=== PATIENT | female | born 1965 | race Caucasian/White ===

== ENCOUNTER 2017-02-16 17:12 | Emergency (ER) | payer OTHER ==
[~2017-02-16] VITALS: Ht 177.8 cm; Wt 88.5 kg
[2017-02-16] MEDS ORDERED: AMLO10TA2 PO (17:40)
[2017-02-16] MEDS ORDERED: MULTCAP11 PO (17:40)
[2017-02-16] MEDS ORDERED: LOSA50TA21 PO (17:40)
[2017-02-16] MEDS ORDERED: LORazepam 2 MG/ML VIAL (J2060) IM STA ×2 (18:40→19:27)
[2017-02-16 19:01] LABS: CONTROL LINE HCG INT CTR LINE PRESENT; MEAN CORPUSCULAR HEMOGLOBIN 26.5 pg (27.0-33.0); MEAN CORPUSCULAR HGB CONC 31.2 g/dl (32.0-36.5); MEAN CORPUSCULAR VOLUME 84.9 fl (80.0-96.0); RED CELL DISTRIBUTION WIDTH 14.9 % (11.5-14.5); WHITE BLOOD COUNT 10.7 K/mm3 (4.0-10.0)
[2017-02-16 19:18] LABS: ALBUMIN/GLOBULIN RATIO 1.14 (1.00-1.93); ALKALINE PHOSPHATASE 99 U/L (45-117); ALT/SGPT 32 U/L (12-78); ANION GAP 10 MEQ/L (8-16); AST/SGOT 24 U/L (15-37); BILIRUBIN,DIRECT < 0.1 MG/DL (0.0-0.2); BILIRUBIN,TOTAL 0.2 MG/DL (0.2-1.0); BLOOD UREA NITROGEN 7 MG/DL (7-18); CALCIUM LEVEL 8.6 MG/DL (8.5-10.1); CARBON DIOXIDE LEVEL 25 MEQ/L (21-32); CHLORIDE LEVEL 107 MEQ/L (98-107); CREATININE FOR GFR 0.71 MG/DL (0.55-1.02); GLOMERULAR FILTRATION RATE > 60.0 (>51); GLUCOSE, FASTING 90 MG/DL (70-105); POTASSIUM SERUM 4.3 MEQ/L (3.5-5.1); SODIUM LEVEL 142 MEQ/L (136-145); TOTAL PROTEIN 7.5 GM/DL (6.4-8.2)
[2017-02-16 19:27] LABS: METHADONE URINE NEGATIVE (NEGATIVE)
[2017-02-16 21:14] VITALS: BP 156/90
== END 2017-02-16 21:32 | disposition home or self-care (01) ==
LOC: M ED 18:58
DX: F10.120 Alcohol abuse with intoxication, uncomplicated (principal); I10 Essential (primary) hypertension; F33.9 Major depressive disorder, recurrent, unspecified; Z79.899 Other long term (current) drug therapy; Z88.8 Allergy status to other drugs, medicaments and biological substances
CPT/HCPCS: 36415; 80048; 80076; 80306; 84443; 84703; 85027; 96372; 99284; G0480; J2060

== ENCOUNTER → 2017-06-25 | Outpatient (CLI) | payer OTHER ==
[~2017-06-25] MED LIST: AMLO10TA2 PO; LOSA50TA5 PO; MULTCAP11 PO
--- NOTE | 2017-06-25 13:00 | REP ---
Chest x-ray: Two views. History: Cough. . Comparison study: May 19, 2017 . Findings: The lungs are well inflated and free of infiltrate. The pleural angles are sharp. The heart size is normal. Pulmonary vasculature is not increased. No significant bony abnormality is seen. Impression: Negative chest x-ray. Signed by Benny Fowler MD 06/25/2017 12:51 P
== END ==
LOC: M LRY 12:10
PROVIDERS: ATTEND Nurse Practitioner Family
DX: R05 Cough (principal)
CPT/HCPCS: 71020; 94640; G0463

== ENCOUNTER → 2017-08-06 | Outpatient (CLI) | payer OTHER ==
--- NOTE | 2017-08-06 11:42 | REP ---
RIGHT ELBOW, FOUR VIEWS: Four views of the right elbow performed. There is no acute fracture or dislocation. No intrinsic osseous pathology is seen. There is no evidence of a joint effusion. There is mild spurring of the coronoid process of the proximal ulna. IMPRESSION: Mild spurring of the coronoid process. Otherwise unremarkable exam. Signed by Gamal Malcolm MD 08/06/2017 02:37 P
== END ==
LOC: M LRY 10:17
PROVIDERS: ATTEND Family Medicine
DX: M25.721 Osteophyte, right elbow (principal); M77.01 Medial epicondylitis, right elbow
CPT/HCPCS: 73080; 80061; 83036; 84439; 84443; G0463

== ENCOUNTER → 2017-11-26 | Outpatient (REF) | payer OTHER ==
[2017-11-26 18:01] LABS: BASO % 0.7 % (0.0-1.0); EOS # 0.3 10^3/uL (0.0-0.50); EOS % 5.1 % (0.0-3.0); HEMATOCRIT 40.2 % (36.0-47.0); HEMOGLOBIN 13.7 g/dl (12.0-16.0); MEAN CORPUSCULAR HEMOGLOBIN 30.9 pg (27.0-33.0); MEAN CORPUSCULAR HGB CONC 34.1 g/dl (32.0-36.5); MEAN CORPUSCULAR VOLUME 90.7 fl (80.0-96.0); MONO # 0.7 10^3/uL (0.0-0.8); MONO % 12.6 % (0.0-5.0); NEUTROPHILS # 2.5 10^3/uL (1.8-7.7); NEUTROPHILS % 45.6 % (36.0-66.0); PLATELET COUNT, AUTOMATED 393 10^3/uL (150-450); RED BLOOD COUNT 4.43 10^6/uL (4.00-5.40); RED CELL DISTRIBUTION WIDTH 13.2 % (11.5-14.5); WHITE BLOOD COUNT 5.5 10^3/uL (4.0-10.0)
[2017-11-26 18:05] LABS: CONTROL LINE HCG INT CTR LINE PRESENT; HCG, SERUM QUALITATIVE NEGATIVE (NEGATIVE)
[2017-11-26 19:03] LABS: FREE T4 0.98 NG/DL (0.76-1.46)
== END ==
LOC: M SFHCLERA 11:17
DX: N93.9 Abnormal uterine and vaginal bleeding, unspecified (principal)
CPT/HCPCS: 84443

== ENCOUNTER 2017-12-24 18:16 | Emergency (ER) | payer OTHER ==
[2017-12-24] MEDS ORDERED: NS 1,000 ML IV ×2 (18:45→19:45)
[2017-12-24] MEDS ORDERED: LORazepam 2 MG/ML VIAL (J2060) IV (19:40)
[2017-12-24] MEDS ORDERED: OXAZEPAM 10 MG CAP PO (19:45)
== END 2017-12-24 20:23 | disposition left against medical advice (07) ==
LOC: M ED 18:16
DX: F10.129 Alcohol abuse with intoxication, unspecified (principal); I10 Essential (primary) hypertension; F17.200 Nicotine dependence, unspecified, uncomplicated; Z88.8 Allergy status to other drugs, medicaments and biological substances; Z79.899 Other long term (current) drug therapy
CPT/HCPCS: 96374

== ENCOUNTER → 2018-01-06 | Outpatient (REF) | payer OTHER ==
[2018-01-09 14:19] LABS: HPV HYBRID CAPTURE II Negative (Negative)
== END ==
LOC: M LAB REF 13:25
DX: Z12.4 Encounter for screening for malignant neoplasm of cervix (principal); Z11.59 Encounter for screening for other viral diseases; L85.9 Epidermal thickening, unspecified
CPT/HCPCS: G0123

== ENCOUNTER 2018-07-11 23:50 | Emergency (ER) | payer OTHER ==
[2018-07-12] MEDS: HALOPERIDOL 5 MG/ML VIAL (J1630) IM (00:15)
[2018-07-12] MEDS: LORazepam 2 MG/ML VIAL (J2060) IM (00:15)
[2018-07-12] MEDS: diphenhydrAMINE INJ 50MG/ML VIAL (J1200) IM (00:15)
[2018-07-12 00:52] LABS: HEMATOCRIT 39.3 % (36.0-47.0); HEMOGLOBIN 13.6 g/dl (12.0-15.5); MEAN CORPUSCULAR HEMOGLOBIN 31.6 pg (27.0-33.0); MEAN CORPUSCULAR HGB CONC 34.6 g/dl (32.0-36.5); MEAN CORPUSCULAR VOLUME 91.2 fl (80.0-96.0); PLATELET COUNT, AUTOMATED 339 10^3/uL (150-450); RED BLOOD COUNT 4.31 10^6/uL (4.00-5.40); RED CELL DISTRIBUTION WIDTH 12.5 % (11.5-14.5); WHITE BLOOD COUNT 9.6 10^3/uL (4.0-10.0)
[2018-07-12 01:20] LABS: AMPHETAMINES LEVEL URINE NEGATIVE (NEGATIVE); BARBITURATES URINE NEGATIVE (NEGATIVE); BENZODIAZEPINES URINE NEGATIVE (NEGATIVE); CANNABINOIDS URINE NEGATIVE (NEGATIVE); COCAINE METABOLITE URINE NEGATIVE (NEGATIVE); METHADONE URINE NEGATIVE (NEGATIVE); OPIATES URINE NEGATIVE (NEGATIVE); PHENCYCLIDINE URINE NEGATIVE (NEGATIVE)
[2018-07-12 01:32] LABS: ALBUMIN 3.8 GM/DL (3.2-5.2); ALBUMIN/GLOBULIN RATIO 1.03 (1.00-1.93); ALKALINE PHOSPHATASE 79 U/L (45-117); ALT/SGPT 42 U/L (12-78); ANION GAP 11 MEQ/L (8-16); AST/SGOT 33 U/L (7-37); BILIRUBIN,DIRECT < 0.1 MG/DL (0.0-0.2); BILIRUBIN,TOTAL 0.2 MG/DL (0.2-1.0); BLOOD UREA NITROGEN 9 MG/DL (7-18); CALCIUM LEVEL 8.1 MG/DL (8.5-10.1); CARBON DIOXIDE LEVEL 22 MEQ/L (21-32); CHLORIDE LEVEL 113 MEQ/L (98-107); CREATININE FOR GFR 0.68 MG/DL (0.55-1.30); ETHYL ALCOHOL (ETHANOL) 0.288 % (0.000-0.010); GLOMERULAR FILTRATION RATE > 60.0 (>51); GLUCOSE, FASTING 102 MG/DL (70-100); POTASSIUM SERUM 4.5 MEQ/L (3.5-5.1); SODIUM LEVEL 146 MEQ/L (136-145); TOTAL PROTEIN 7.5 GM/DL (6.4-8.2)
[2018-07-12 01:34] LABS: ACETAMINOPHEN LEVEL < 2.0 UG/ML (10.0-30.0)
== END 2018-07-12 08:56 | disposition home or self-care (01) ==
LOC: M ED 23:50
DX: F10.120 Alcohol abuse with intoxication, uncomplicated (principal); Z88.8 Allergy status to other drugs, medicaments and biological substances; Z79.899 Other long term (current) drug therapy; Z78.1 Physical restraint status
CPT/HCPCS: J1200

== ENCOUNTER → 2018-07-30 | Outpatient (REF) | payer OTHER ==
[2018-07-30 22:19] LABS: CHLAMYDIA DNA AMPLIFICATION NEGATIVE (NEGATIVE); GC DNA AMPLIFICATION NEGATIVE (NEGATIVE)
== END ==
LOC: M SFHCLERA 19:17
DX: N39.0 Urinary tract infection, site not specified (principal)
CPT/HCPCS: 87086

== ENCOUNTER → 2019-07-12 | Outpatient (CLI) | payer OTHER ==
[~2019-07-12] MED LIST changes: -AMLO10TA2 PO; +AMLO10TA5 PO; +LOSARTAN-HCTZ; +ZOLP6.25
--- NOTE | 2019-07-12 17:33 | REP ---
PA and lateral chest: Comparison is 06/25/2017. The lung polk are clear. The cardiac size is normal. The tylor, mediastinum, and skeletal structures are unremarkable. There is a cervical spine stabilization plate, unchanged. Impression: Negative PA and lateral chest. There is no interval change. Electronically Signed by Gamal Hernandez MD 07/12/2019 05:24 P
== END ==
LOC: M LRY 17:11
PROVIDERS: ATTEND Physician Assistant
DX: R05 Cough (principal)

== ENCOUNTER → 2019-08-11 | Outpatient (REF) | payer OTHER ==
[2019-08-11 20:27] LABS: APPEARANCE, URINE CLEAR (CLEAR); BACTERIA, URINE AUTO NEGATIVE (NEGATIVE); BILIRUBIN, URINE AUTO NEGATIVE (NEGATIVE); BLOOD, URINE BLOOD NEGATIVE (NEGATIVE); COLOR, URINE STRAW (YELLOW); GLUCOSE, URINE (UA) AUTO NEGATIVE (NEGATIVE); KETONE, URINE AUTO NEGATIVE (NEGATIVE); LEUKOCYTE ESTERASE, URINE AUTO NEGATIVE (NEGATIVE); MUCUS, URINE SMALL (NEGATIVE); NITRITE, URINE AUTO NEGATIVE (NEGATIVE); PROTEIN, URINE AUTO NEGATIVE (NEGATIVE); RBC, URINE AUTO 1 /HPF (0-3); SPECIFIC GRAVITY URINE AUTO 1.005 (1.002-1.035); SQUAMOUS EPITHELIAL CELL UR AU 1 /HPF (0-6); UROBILINOGEN, URINE AUTO 0.2 mg/dL (0.0-2.0); WBC, URINE AUTO 1 /HPF (0-3)
== END ==
LOC: M SFHCLERA 15:36
PROVIDERS: ATTEND Family Medicine
DX: R30.0 Dysuria (principal)
CPT/HCPCS: 81001; 81002; 87086; G0463

== ENCOUNTER → 2020-12-05 | Outpatient (CLI) | payer OTHER ==
[~2020-12-05] MED LIST changes: -AMLO10TA5 PO; +AMLO1TAB25 PO; -ZOLP6.25; +ZOLP6.2517
--- NOTE | 2020-12-05 11:31 | REP ---
INDICATION: INJURY, EVALUATE FOR FOREIGN BODY AT THE 2ND THROUGH 4TH MP CP JOINT. COMPARISON: NONE. TECHNIQUE: FOUR VIEWS FINDINGS: The distal radius and ulna, carpal bones and metacarpals were grossly unremarkable. No visible fracture, subluxation or focal bone lesion. MCP and IP joints along with the phalanges show no focal lesion. There is no radiopaque foreign body, fracture or erosion. IMPRESSION: 1. No radiographic evidence of discernible foreign body at the 2nd through 4th MCP joint region. 2. There is no fracture, avulsion, erosion or other significant finding. <Electronically signed by Dom Reis > 12/05/20 [id number]
== END ==
LOC: M WUC 11:05
PROVIDERS: ATTEND Nurse Practitioner Family
DX: S69.91XA Unspecified injury of right wrist, hand and finger(s), initial encounter (principal); X58.XXXA Exposure to other specified factors, initial encounter; Y92.9 Unspecified place or not applicable; Y93.9 Activity, unspecified; Y99.9 Unspecified external cause status

== ENCOUNTER → 2021-08-23 | Outpatient (REF) | payer OTHER | LOC: M SFHCLERA 15:39 | PROVIDERS: ATTEND Student in an Organized Health Care Education/Training Program | DX: Z79.899 Other long term (current) drug therapy (principal) | CPT/HCPCS: 80307; G0463 ==

== ENCOUNTER → 2021-11-11 | Outpatient (CLI) | payer OTHER | LOC: M WUC 10:51 | PROVIDERS: ATTEND Student in an Organized Health Care Education/Training Program | DX: M25.512 Pain in left shoulder (principal) ==

== ENCOUNTER → 2022-08-05 | Outpatient (CLI) | payer OTHER ==
[~2022-08-05] MED LIST changes: +DIAZ2TAB; +LOSA100T5; +TIZA10TA
== END ==
LOC: M SOG 13:00
PROVIDERS: ATTEND Orthopaedic Surgery Hand Surgery
DX: M79.641 Pain in right hand (principal); M25.741 Osteophyte, right hand

== ENCOUNTER → 2022-08-07 | Outpatient (CLI) | payer OTHER ==
[~2022-08-07] MED LIST changes: +HYDR-3713 PO
== END ==
LOC: M LABSMTC 10:52
PROVIDERS: ATTEND Anesthesiology
DX: Z01.812 Encounter for preprocedural laboratory examination (principal); Z20.822 Contact with and (suspected) exposure to COVID-19

== ENCOUNTER 2022-08-08 07:07 | Day surgery (SDC) | payer OTHER ==
[~2022-08-08] VITALS: Ht 177.8 cm; Wt 85.9 kg
[~2022-08-08 07:07] MED LIST changes: -HYDR-3713 PO; +LIDOCAINE W/EPINEPHRINE 1% 20ML VIAL XX ONE; +SODIUM BICARBONATE 8.4% INJ 50MEQ 50 ML VIAL XX ONE
[2022-08-08] MEDS ORDERED: BACITRACIN OINTMENT 30GM TUBE As Ordered ONE (08:38)
[2022-08-08 10:15] VITALS: BP 148/77
[2022-08-08] MEDS ORDERED: HYDR-3713 PO (10:25)
== END 2022-08-08 10:42 | disposition home or self-care (01) ==
LOC: M SDC 07:07
PROVIDERS: ATTEND Orthopaedic Surgery Hand Surgery
DX: M65.321 Trigger finger, right index finger (principal); M65.351 Trigger finger, right little finger; F17.210 Nicotine dependence, cigarettes, uncomplicated; I10 Essential (primary) hypertension; F41.9 Anxiety disorder, unspecified; Z79.899 Other long term (current) drug therapy; Z88.8 Allergy status to other drugs, medicaments and biological substances

== ENCOUNTER → 2022-10-17 | Outpatient (REF) | payer OTHER ==
[~2022-10-17] MED LIST changes: +HYDR-3713 PO; -LIDOCAINE W/EPINEPHRINE 1% 20ML VIAL XX ONE; -SODIUM BICARBONATE 8.4% INJ 50MEQ 50 ML VIAL XX ONE
== END ==
LOC: M SFHCDERM 09:11
PROVIDERS: ATTEND Nurse Practitioner Family
DX: L02.91 Cutaneous abscess, unspecified (principal)

== ENCOUNTER → 2024-06-20 | Outpatient (CLI) | payer OTHER ==
[~2024-06-20] MED LIST changes: -ZOLP6.2517; +ZOLP6.2526
== END ==
LOC: M SOG 07:56
PROVIDERS: ATTEND Orthopaedic Surgery
DX: M25.551 Pain in right hip (principal); Z53.9 Procedure and treatment not carried out, unspecified reason

== ENCOUNTER → 2024-06-23 | Outpatient (CLI) | payer OTHER | LOC: M SOG 07:21 | PROVIDERS: ATTEND Orthopaedic Surgery | DX: M25.551 Pain in right hip (principal) ==

== ENCOUNTER 2024-07-20 07:25 | Day surgery (SDC) | payer OTHER ==
[~2024-07-20] VITALS: Ht 177.8 cm; Wt 92.2 kg
[~2024-07-20 07:25] MED LIST changes: +ALBU8.5H INH; -DIAZ2TAB; +DIAZ2TAB PO; +OXYC1TAB23 PO; -TIZA10TA; +TIZA10TA PO
[2024-07-20] MEDS ORDERED: IBUP-1114 PO (07:44)
[2024-07-20] MEDS ORDERED: TYLE650T38 PO (07:44)
[2024-07-20] MEDS: SODIUM BICARBONATE 8.4% INJ 50MEQ 50ML VIAL XX ONE (08:00)
[2024-07-20] MEDS: LIDOCAINE W/EPINEPHRINE 1% 20ML VIAL XX ONE (08:00)
[2024-07-20] MEDS: BACITRACIN OINTMENT 30GM TUBE As Ordered ONE (09:11)
[2024-07-20 09:30] VITALS: BP 157/87; TEMP 97.5; O2SAT 95
[2024-07-20] MEDS ORDERED: OXYC1TAB23 PO (09:35)
== END 2024-07-20 09:42 | disposition home or self-care (01) ==
LOC: M SDC 07:25
PROVIDERS: ATTEND Orthopaedic Surgery Hand Surgery
DX: M65.312 Trigger thumb, left thumb (principal); M65.331 Trigger finger, right middle finger; I10 Essential (primary) hypertension; R21 Rash and other nonspecific skin eruption; F41.9 Anxiety disorder, unspecified; Z79.51 Long term (current) use of inhaled steroids; Z79.899 Other long term (current) drug therapy; J30.2 Other seasonal allergic rhinitis; Z88.8 Allergy status to other drugs, medicaments and biological substances; F17.200 Nicotine dependence, unspecified, uncomplicated